=== PATIENT | male | born 1995 | race Caucasian/White ===

== ENCOUNTER 2019-06-14 09:46 | Inpatient (IN) ==
[2019-06-14] MEDS ORDERED: DEXTROSE 10% 250 ML BAG IV PRN (11:32)
[2019-06-14] MEDS ORDERED: GLUCAGON 1 MG VIAL IM PRN (11:32)
[2019-06-14] MEDS ORDERED: ONDANSETRON 4 MG/2 ML VIAL IV PRN (11:32)
[2019-06-14] MEDS ORDERED: DILTIAZEM 50 MG/10 ML VIAL IV ONE (12:00)
[2019-06-14] MEDS ORDERED: MAGNESIUM SULF RIDER 2 GM in PREMIX 1 EACH IV ONE (13:06)
[2019-06-14 13:13] LABS: Basophils % 0.3 % (0.0-0.8); Eosinophils % 0.1 % (0.00-10.9); Hematocrit 41.3 VOL% (42.0-52.0); Immature Granulocytes % 0.3 %; Immature Granulocytes Absolute 0.02 #; Lymphocytes # 1.2 10*3/uL (1.4-4.0); Mean Corpuscular HGB Conc 33.9 GM/DL (32-36); Mean Corpuscular Volume 76.6 FL (87-102); Mean Platelet Volume 11.6 FL (9.6-12.0); Monocytes % 5.6 % (1.7-12.7); Neutrophils % 77.7 % (38.7-73.9); Platelet Count 227 T/CUMM (130-400); Red Blood Count 5.39 MC/CUMM (3.8-5.5); Red Cell Distribution Width 14.3 % (9.3-17.3); White Blood Count 7.3 T/CUMM (4-12)
[2019-06-14] MEDS: dilTIAZem Drip 125 MG/125 ML PREMIX IV SCH (13:24)
[2019-06-14 13:27] LABS: Barbiturates Screen,Urine Negative (Negative); Benzodiazepines Screen,Urine Negative (Negative); Cannabinoid Screen,Urine Negative (Negative); Opiate Screen,Urine Negative (Negative); Phencyclidine Screen,Urine Negative (Negative)
[2019-06-14 13:28] LABS: Bilirubin,Total 0.4 MG/DL (0.2-1.0); Calcium 8.8 MG/DL (8.5-10.1); Osmolality,Calculated 266.2 MOS/KG (273-304); Total Protein 8.1 G/DL (6.4-8.3)
[2019-06-14 13:29] LABS: Troponin I < 0.015 NG/ML (0.00-0.045)
[2019-06-14 13:30] LABS: Apearance,Urine CLEAR (Clear); Bilirubin,Urine Negative (Negative); Blood, Urine Negative (Negative); Glucose,Urine (UA) Negative (Negative); Hyaline Casts,Urine 4 /LPF (0-3); Ketones,Urine 20 mg/dL (Negative); Mucus,Urine Few /LPF (Occasional); Nitrite,Urine Negative (Negative); Protein,Urine Negative; Squamous Epithelial Cell,Urine Occasional /HPF (0-10); Urine Color Yellow (Yellow); Urine Specific Gravity 1.013 (1.001-1.035); Urine Urobilinogen < 2.0 EU/DL (0.2-1.0); WBC,Urine 1 /HPF (0-6)
[2019-06-14] MEDS ORDERED: ENOXAPARIN 100 MG/ML SYRINGE SUBCUT SCH (14:00)
[2019-06-14] MEDS ORDERED: POTASSIUM CHLORIDE 20 MEQ TABLET PO ONE (14:19)
[2019-06-14] MEDS ORDERED: RANOLAZINE 500 MG TABLET PO ONE (15:18)
[2019-06-14] MEDS ORDERED: RIVAROXABAN 20 MG TABLET PO SCH (17:00)
[2019-06-15 07:10] LABS: Basophils % 0.5 % (0.0-0.8); Eosinophils # 0.1 10*3/uL (0.0-0.87); Eosinophils % 1.8 % (0.00-10.9); Hematocrit 44.1 VOL% (42.0-52.0); Hemoglobin 13.9 GM/DL (14.0-18.0); Immature Granulocytes % 0.5 %; Immature Granulocytes Absolute 0.02 #; Lymphocytes # 1.5 10*3/uL (1.4-4.0); Lymphocytes % 34.3 % (21.2-54.2); Mean Corpuscular HGB Conc 31.5 GM/DL (32-36); Mean Corpuscular Volume 80.2 FL (87-102); Mean Platelet Volume 10.9 FL (9.6-12.0); Neutrophils % 53.9 % (38.7-73.9); Platelet Count 212 T/CUMM (130-400); Red Cell Distribution Width 14.9 % (9.3-17.3); White Blood Count 4.3 T/CUMM (4-12)
[2019-06-15] MEDS ORDERED: DEXMEDETOMIDINE 200 MCG/2 ML VIAL ONE (08:09)
[2019-06-15] MEDS ORDERED: ETOMIDATE 40 MG/20 ML VIAL IV ONE (08:09)
[2019-06-15 08:43] LABS: Hepatitis B Core IgM Quant 0.08 Index; Hepatitis B Surface Ag Quant < 0.10 Index; Hepatitis B Surface Ag Result Negative (Negative); Hepatitis C Virus Ab Quant < 0.02 Index; Hepatitis C Virus Ab Result Negative (Negative)
[2019-06-15] MEDS ORDERED: amLODIPine 10 MG TABLET PO SCH (09:00)
[2019-06-15 09:12] LABS: Albumin 3.6 G/DL (3.4-5.0); Bilirubin,Total 0.5 MG/DL (0.2-1.0); Calcium 8.8 MG/DL (8.5-10.1); Osmolality,Calculated 268.1 MOS/KG (273-304); Risk Ratio 6.89; Thyroid Stimulating Hormone 2.73 uIU/ml (0.358-3.74); Total Protein 7.6 G/DL (6.4-8.3); VLDL CHOLESTEROL 41.4 MG/DL
[2019-06-15] MEDS: ASPIRIN EC 81 MG TABLET PO SCH ×2 (09:13→11:37)
[2019-06-15] MEDS: DRONEDARONE 400 MG TABLET PO SCH ×2 (09:13→11:40)
[2019-06-15] MEDS: PANTOPRAZOLE 40 MG TABLET PO SCH ×2 (09:14→11:37)
[2019-06-15] MEDS ORDERED: LOSARTAN 50 MG TABLET PO SCH (10:22)
[2019-06-15 11:31] VITALS: BP 126/79
[2019-06-15] MEDS: dilTIAZem Drip 125 MG/125 ML PREMIX IV SCH (11:53)
[2019-06-16] MEDS ORDERED: LOSARTAN 50 MG TABLET PO SCH (09:00)
[2019-06-16] MEDS ORDERED: DILTIAZEM CD 120 MG CAPSULE PO SCH (10:02)
== END 2019-06-15 16:09 | disposition home or self-care (01) | DRG 309 ==
LOC: SUATTDRO 11:08 → N.TELEN 11:08
PROVIDERS: ADMIT Internal Medicine; ATTEND Internal Medicine